=== PATIENT | male | born 1965 | race Caucasian/White ===

== ENCOUNTER 2017-03-12 21:05 | Inpatient (IN) | payer BC, OTHER ==
--- NOTE | 2017-03-12 21:39 | ED ---
Extremity Problem HPI - General Source: patient, RN notes reviewed Mode of arrival: ambulatory Limitations: no limitations <Sindy Gregorio - Last Filed: 03/12/17 21:29> <Francisco Frances - Last Filed: 03/12/17 23:43> - General Chief complaint: Extremity Problem,Nontraumatic Stated complaint: finger numbness Time Seen by Provider: 03/12/17 21:13 - History of Present Illness Initial comments: This is a 51-year-old man who presents to the emergency department with chief complaint of left pinky numbness. Patient states that at about 4:30 this evening he noticed that his left pinky was pale and felt numb. Patient reports that the extent of the numbness is distal to the DIP of left fifth digit. Patient is worried about a blood clot due to his history of TIA. He reports that he takes Plavix 75 mg daily. Patient describes the numbness as if there was a "band-aid wrapped around my finger." He reports that he believes he does have Reynaud's phenomenon as his fingers become pale and uncomfortable, worsening in the cold weather. Patient also reports that 3 days ago while at work he hit his palm and it is now tender. He wonders if he injured a nerve. Denies fever, chills, chest pain, shortness of breath, abdominal pain, nausea or vomiting, constipation or diarrhea, dysuria or hematuria, headache or vision changes. (Sindy Gregorio) - Related Data Home Medications Medication Instructions Recorded Confirmed L.acidoph,Paracasei, B.lactis 1 cap PO DAILY 03/14/16 03/12/17 [Probiotic] Vitamin B Complex 1 cap PO DAILY 03/12/17 03/12/17 Previous Rx's Medication Instructions Recorded Clopidogrel Bisulfate [Plavix] 75 mg PO DAILY #30 tab 03/14/16 Allergies Allergy/AdvReac Type Severity Reaction Status Date / Time No Known Allergies Allergy Verified 03/12/17 22:13 Review of Systems ROS Other: All systems not noted in ROS Statement are negative. <Sindy Gregorio - Last Filed: 03/12/17 21:29> ROS Other: All systems not noted in ROS Statement are negative. <Francisco Frances - Last Filed: 03/12/17 23:43> ROS Statement: Those systems with pertinent positive or pertinent negative responses have been documented in the HPI. Past Medical History Past Medical History: CVA/TIA Additional Past Medical History / Comment(s): diverticular disease History of Any Multi-Drug Resistant Organisms: None Reported Past Surgical History: Appendectomy Additional Past Surgical History / Comment(s): diverticulitis Past Anesthesia/Blood Transfusion Reactions: No Reported Reaction Past Psychological History: No Psychological Hx Reported Smoking Status: Former smoker Past Alcohol Use History: None Reported Past Drug Use History: None Reported - Past Family History Mother Family Medical History: Coronary Artery Disease (CAD), CVA/TIA, Diabetes Mellitus, Hypertension, Myocardial Infarction (CA) Additional Family Medical History / Comment(s): Mother of CHF at the age of 89yrs. Father Family Medical History: Congestive Heart Failure (CHF), Coronary Artery Disease (CAD) Additional Family Medical History / Comment(s): Father of CHF at the age of 58yrs. <Sindy Gregorio - Last Filed: 03/12/17 21:29> General Exam Limitations: no limitations <Sindy Gregorio - Last Filed: 03/12/17 21:29> General appearance: alert, in no apparent distress Head exam: Present: atraumatic, normocephalic, normal inspection Eye exam: Present: normal appearance, PERRL, EOMI. Absent: scleral icterus, conjunctival injection, periorbital swelling ENT exam: Present: normal exam, mucous membranes moist Neck exam: Present: normal inspection. Absent: tenderness, meningismus, lymphadenopathy Respiratory exam: Present: normal lung sounds bilaterally. Absent: respiratory distress, wheezes, rales, rhonchi, stridor Cardiovascular Exam: Present: regular rate, normal rhythm, normal heart sounds. Absent: systolic murmur, diastolic murmur, rubs, gallop, clicks GI/Abdominal exam: Present: soft, normal bowel sounds. Absent: distended, tenderness, guarding, rebound, rigid Extremities exam: Present: normal inspection, full ROM, normal capillary refill. Absent: tenderness, pedal edema, joint swelling, calf tenderness Back exam: Present: normal inspection Neurological exam: Present: alert, oriented X3, CN II-XII intact Psychiatric exam: Present: normal affect, normal mood Skin exam: Present: warm, dry, intact, normal color. Absent: rash <Roskopp,Francisco B - Last Filed: 03/12/17 23:43> - General Exam Comments Initial Comments: General: Awake and alert, well-developed; in no apparent distress. is at bedside. HEENT: Head atraumatic, normocephalic. Pupils are equal, round and reactive to light. Extraocular movements intact. Dentition is poor. Neck: Supple. Normal ROM. Cardiovascular: Regular rate and rhythm. No murmurs, rubs or gallops. Chest symmetrical. Respiratory: Normal respiratory effort with no use of accessory muscles. Audible expiratory wheezing. Expiratory wheezing throughout all lung garcia. Skin/Musculoskeletal: 5th digit of left hand is pale, cool and has poor capillary refill. Poor skin turgor at pad of left fifth digit. Normal sensation. Range of motion and strength are intact. Radial pulses are 2+ equal and palpable bilaterally. Positive Jonny test-blood flow in ulnar artery distribution is obstructed. Neurological: Alert and oriented x3. CN II-XII grossly intact. Speech is fluent and answers are appropriate. No focal neuro deficits. Psychiatric: Normal mood and affect. No overt signs of depression or anxiety noted. (Sindy Gregorio) Course <Sindy Gregorio - Last Filed: 03/12/17 21:29> <Francisco Frances - Last Filed: 03/12/17 23:43> Vital Signs 03/12/17 21:08 Temperature 97 F L Pulse Rate 99 Respiratory 16 Rate Blood Pressure 136/92 O2 Sat by Pulse 97 Oximetry - Reevaluation(s) Reevaluation #1: 03/12/17 23:43 Patient does have good pulses of all pulse 03/12/17 23:43 Positive Jonny test left hand, ulnar distribution 03/12/17 23:43 (Francisco Frances) Medical Decision Making <Sindy Gregorio - Last Filed: 03/12/17 21:29> - Lab Data Result diagrams: 03/12/17 23:28 - Radiology Data Radiology results: report reviewed (CTA chest and left upper extremity is pending), image reviewed <Francisco Frances - Last Filed: 03/12/17 23:43> - Medical Decision Making Patient is a 51-year-old male who presents with chief complaint of left fifth digit paleness and numbness. Patient denies chest pain or shortness of breath. This case was discussed with attending physician, Dr. Frances, who also evaluated the patient. Jonny test was performed demonstrating decreased blood flow to the hand via the ulnar artery. (Sindy Gregorio) 51 male to ER for evaluation, patient was also seen in ER by Dr. Hudson for vascular surgery, patient be admitted with anticoagulation, further evaluation and treatment by vascular surgery (Francisco Frances) - Lab Data Lab Results 03/12/17 Range/Units 23:28 WBC 6.5 (3.8-10.6) k/uL RBC 4.42 (4.30-5.90) m/uL Hgb 13.9 (13.0-17.5) gm/dL Hct 41.8 (39.0-53.0) % MCV 94.6 (80.0-100.0) fL MCH 31.4 (25.0-35.0) pg MCHC 33.2 (31.0-37.0) g/dL RDW 13.7 (11.5-15.5) % Plt Count 266 (150-450) k/uL Neutrophils % 46 % Lymphocytes % 40 % Monocytes % 8 % Eosinophils % 3 % Basophils % 1 % Neutrophils # 3.0 (1.3-7.7) k/uL Lymphocytes # 2.6 (1.0-4.8) k/uL Monocytes # 0.5 (0-1.0) k/uL Eosinophils # 0.2 (0-0.7) k/uL Basophils # 0.1 (0-0.2) k/uL Disposition <Sindy Gregorio - Last Filed: 03/12/17 21:29> <Francisco Frances - Last Filed: 03/12/17 23:43> Clinical Impression: Obstruction of left ulnar artery, Ischemia of left upper extremity Disposition: ADMITTED IP TO THIS HOSP Condition: Good Instructions: Peripheral Artery Disease (ED) Additional Instructions: Please take medications as prescribed. Please follow up with primary care provider within 1-2 days. Return to emergency department if symptoms should worsen or any concerns arise. Referrals: Bo Fonseca MD [Primary Care Provider] - 1-2 days
[2017-03-12] MEDS ORDERED: SODIUM CHLORIDE 0.9% 1,000 ML IV STA (22:39)
[2017-03-12] MEDS ORDERED: HEPARIN SODIUM,PORCINE 5,000 UNIT/ML 1 ML VIAL IV ONE (22:39)
[2017-03-12 23:35] LABS: Basophils # (A) 0.1 k/uL (0-0.2); Basophils % (A) 1 %; CH 32.3; CHCM 34.3; Eosinophils # (A) 0.2 k/uL (0-0.7); Eosinophils % (A) 3 %; HCT 41.8 % (39.0-53.0); HDW 2.23; HGB 13.9 gm/dL (13.0-17.5); Luc # (Auto) 0.18; Luc % (Auto) 3; Lymphocytes # (A) 2.6 k/uL (1.0-4.8); Lymphocytes % (A) 40 %; MCH 31.4 pg (25.0-35.0); MCHC 33.2 g/dL (31.0-37.0); MCV 94.6 fL (80.0-100.0); Monocytes # (A) 0.5 k/uL (0-1.0); Monocytes % (A) 8 %; Neutrophils % (A) 46 %; RBC 4.42 m/uL (4.30-5.90); RDW 13.7 % (11.5-15.5); WBC 6.5 k/uL (3.8-10.6); WBC (Perox) 6.46
[2017-03-12] MEDS ORDERED: SODIUM CHLORIDE 0.9% 1,000 ML IV ONE (23:40)
[2017-03-12] MEDS ORDERED: RX INFO: IV CONTRAST WAS GIVEN 1 EACH MISC MISCELLANE PRN (23:40)
[2017-03-12 23:45] LABS: ALT 34 U/L (21-72); AST 15 U/L (17-59); Alkaline Phosphatase 77 U/L (38-126); Anion Gap 9 mmol/L; Blood Urea Nitrogen 20 mg/dL (9-20); Carbon Dioxide 24 mmol/L (22-30); Chloride 107 mmol/L (98-107); Glucose 121 mg/dL (74-99); INR 0.9 (<1.2); Magnesium 2.1 mg/dL (1.6-2.3); Non-African American GFR(MDRD) >60 (>60 ml/min/1.73 sqM); Partial Thromboplastin Time 22.6 sec (22.0-30.0); Phosphorus 3.4 mg/dL (2.5-4.5); Prothrombin Time 9.7 sec (9.0-12.0); Sodium 140 mmol/L (137-145); Total Bilirubin 0.2 mg/dL (0.2-1.3); Total Protein 6.4 g/dL (6.3-8.2)
[2017-03-12] MEDS: HEPARIN SODIUM,PORCINE/D5W PMX 25,000 UNIT in DEXTROSE/WATER 1 500ML.BAG IV SCH (23:45)
[2017-03-13 00:07] LABS: Creatine Kinase 51 U/L (55-170)
[2017-03-13 00:20] LABS: Creatine Kinase MB 1.1 ng/mL (0.0-2.4); Troponin I <0.012 ng/mL (0.000-0.034)
[2017-03-13] MEDS ORDERED: HYDROmorphone 1 MG/ML 1 ML SYRINGE IVP PRN ×2 (04:57→04:58)
[2017-03-13 05:29] LABS: Basophils % (A) 1 %; CH 32.4; CHCM 33.7; Eosinophils # (A) 0.2 k/uL (0-0.7); Eosinophils % (A) 4 %; HCT 40.9 % (39.0-53.0); HGB 13.2 gm/dL (13.0-17.5); Luc # (Auto) 0.11; Luc % (Auto) 2; Lymphocytes # (A) 2.4 k/uL (1.0-4.8); Lymphocytes % (A) 48 %; MCH 31.2 pg (25.0-35.0); MCHC 32.4 g/dL (31.0-37.0); MCV 96.5 fL (80.0-100.0); Mean Platelet Volume 7.2; Monocytes # (A) 0.4 k/uL (0-1.0); Monocytes % (A) 8 %; Neutrophils # (A) 1.8 k/uL (1.3-7.7); Neutrophils % (A) 37 %; RBC 4.23 m/uL (4.30-5.90); RDW 13.8 % (11.5-15.5); WBC 4.9 k/uL (3.8-10.6); WBC (Perox) 4.79
[2017-03-13] MEDS: HEPARIN SODIUM,PORCINE 5,000 UNIT/ML 1 ML VIAL IV PRN ×2 (06:02→13:32)
--- NOTE | 2017-03-13 08:05 | CONS ---
CONSULTATION This is a 51-year-old gentleman who came to the emergency room at [facility] with history of numbness and cold feeling of the left hand, fifth finger and complained of numbness and cold feeling. No history of trauma. Patient had history of TIA in the past, affected left side. Patient had a complete stroke workup and according the patient, no hemodynamic stenosis noted of the carotid artery. MEDICAL HISTORY: History of hypertension, controlled with medication. No history of coronary artery disease. PHYSICAL EXAMINATION: Neck is supple. No bruit appreciated. Chest is clear to auscultation. First and second sound is normal. Abdomen is soft, nontender. Physical examination of the femorals are palpable bilateral. Brachial and radial pulses are palpable bilateral. The left hand, fifth finger has some cold feeling and mild capillary refill noted. Motor function was found to be normal. PLAN: Patient has been anticoagulated with heparin. We will do the CT of the chest and the arm. Will follow with you. SIA / IJN: [id number] /
--- NOTE | 2017-03-13 12:24 | CT ---
EXAMINATION TYPE: CT angio chest, CT angio upper extremity LT DATE OF EXAM: 03/13/2017 COMPARISON: NONE HISTORY: 51-year-old male with pain Lt pinky is numb TECHNIQUE: Contiguous axial scanning of the chest and left upper extremity performed with IV Contrast , patient injected with 100 mL of Omnipaque 350. Coronal/sagittal reconstructions performed. 3-D chacorta nstructions generated on a dedicated independent workstation. CT DLP: 1222.7 mGycm Automated exposure control for dose reduction was used. FINDINGS: CHEST: The heart is normal size without pericardial effusion. Aorta is normal caliber with conventional arch vessel branching anatomy. No significant atherosclerot ic change. No thoracic lymphadenopathy. Some patchy and strandy atelectasis or scarring at the posterior left lung base. Some additional stra ndy scarring peripheral right upper lobe. No consolidation or pleural effusion. ABDOMEN: Small hiatal hernia suggested but there is some circumferential wall thickening just above the GE naldo ction in the distal esophagus, axial image 46. Redundant mucosa is possible. Hypervascular focus anterior left hepatic lobe, axial image 50 likely small area of vascular shunting . Similar small area in the right hepatic lobe, axial image 60. Gallbladder, adrenal glands, kidneys, spleen, and pancreas show no gross abnormality. No dilated small bowel, free fluid, or free air. Scattered nonenlarged mesenteric lymph nodes are not ed. Some surgical material at the cecum suggest prior appendectomy. Short segment wall thickening of the proximal third sigmoid colon for a length of 4.6 cm, axial image 106 along with sigmoid diverticulosis. No pericolonic inflammatory change seen. There is mild atherosclerotic change within the infrarenal abdominal aorta and common iliac arteries. Pelvis: Patulous bilateral inguinal canals. Bladder is urine distended. No abnormal fluid collection in the p joseph or pelvic lymphadenopathy seen. Bones: Mild degenerative changes of the hips. Additional degenerative changes lower lumbar spine. No osseous destructive process. Left upper extremity: The left subclavian, axillary, brachial, its bifurcation, and radial artery are visualized and patent . The radial artery is seen to the level of the base of the thumb after which it becomes obscured. Th e ulnar artery becomes obscured 8 cm beyond the brachial artery bifurcation as the patient shifted hi s arm outside the field of view. IMPRESSION: VASCULATURE: 1. The aorta and arch vessels are patent. 2. The left axillary and brachial arteries are patent. 3. The radial artery is seen to the base of the thumb. 4. The first 8 cm of the ulnar artery are patent. However, subsequently, the ulnar artery leaves the field of view and is not assessed from the mid forearm level down (the patient moved his arm). OTHER FINDINGS: 2. Sigmoid diverticulosis though with short segment circumferential wall thickening at the proximal t hird sigmoid. Findings could reflect chronic diverticulitis or underlying neoplasm. Direct visualizat ion recommended. 3. Small hiatal hernia but with some additional thickening at the distal esophagus which may relate t o redundant wall. Again, direct visualization can exclude neoplasm.
[2017-03-13 13:00] LABS: Rheumatoid Factor, Qnt <9 IU/mL (<12)
[2017-03-13] MEDS ORDERED: RX INFO: IV CONTRAST WAS GIVEN 1 EACH MISC MISCELLANE PRN (14:45)
[2017-03-13] MEDS: CLOPIDOGREL 75 MG TAB PO SCH (15:50)
--- NOTE | 2017-03-13 15:59 | HP ---
HISTORY AND PHYSICAL CHIEF COMPLAINTS: Pain and discoloration of the left little finger. HISTORY OF PRESENT ILLNESS: This 51-year-old gentleman with a past medical history of multiple medical problems, including CVA, TIA, diverticulitis, appendectomy, being followed by Dr. Fonseca in the outpatient setting, was noted to have bluish discoloration of the left arm yesterday. The patient noted the left pinky was pale and the patient also had some Band-Aid wrapped around the finger. Because of lack of improvement, the patient was referred to [facility] and admitted for further evaluation and treatment. Patient also has Raynaud phenomenon in the fingers. There is no history of any fever, rigor or chills. No history of headache, loss of consciousness, seizures. PAST MEDICAL HISTORY: 1. History of CVA, TIA. 2. Diverticular disease. HOME MEDICATIONS: 1. Vitamin B complex 1 p.o. daily. 2. Probiotic 1 daily. 3. Plavix 75 mg p.o. daily. ALLERGIES: NONE. FAMILY HISTORY: History of CAD, CVA, TIA, diabetes mellitus, type 2, hypertension, myocardial infarction in the family. SOCIAL HISTORY: History of smoking. No history alcohol intake. REVIEW OF SYSTEMS: ENT: No diminished hearing. No diminished vision. CARDIOVASCULAR SYSTEM: No angina, palpitations. RESPIRATORY SYSTEM: No cough, hemoptysis. GI: As mentioned earlier. : No dysuria or retention. NERVOUS SYSTEM: No numbness. Otherwise as mentioned earlier. ALLERGY/IMMUNOLOGY: No asthma, hayfever. MUSCULOSKELETAL: As mentioned earlier. HEMATOLOGY/ONCOLOGY: As mentioned earlier. ENDOCRINE: No history of diabetes, hypothyroidism. CONSTITUTIONAL: As mentioned earlier. DERMATOLOGY: As mentioned earlier. RHEUMATOLOGY: Negative. PSYCHIATRY: As mentioned earlier. PHYSICAL EXAMINATION: Patient alert and oriented x3. Pulse is 83, blood pressure 124/88, respiration 20, temperature 96.9, pulse ox 94% room air. HEENT: Conjunctivae normal. Oral mucosa moist. NECK: No jugular venous distention. No carotid bruit. No lymph node enlargement. CARDIOVASCULAR SYSTEM: S1, S2 muffled. RESPIRATORY SYSTEM: Breath sounds diminished at the bases. No rhonchi. No crackles. ABDOMEN: Soft, nontender. No mass palpable. LEGS: No edema. No swelling. NERVOUS SYSTEM: Higher functions as mentioned earlier. Moves all 4 limbs. No focal motor or sensory deficit. LYMPHATICS: No lymph node palpable in neck, axillae or groin. SKIN: No ulcer, rash, bleeding. Capillary return in the left little finger is slow at this time. Minimal discoloration. Non-tender. Movements are not limited. Skin as mentioned earlier. LABS: WBC 6.2, hemoglobin 13.9. Glucose 121. AST is 15 and total creatine kinase is 51. Rheumatoid factor is less than 9. C-reactive protein 6. ASSESSMENT: 1. 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 Rule out embolic disease. 2. Rule out thromboangiitis obliterans. 3. Possible Raynaud syndrome. 4. Cerebrovascular accident, transient ischemic attack. 5. Diverticular disease. 6. History of nicotine dependence. RECOMMENDATION AND DISCUSSION: In this 51-year-old gentleman who presented with multiple complex medical issues, will monitor the patient closely, continue the current medications, continue with symptomatic management. I would recommend continuing with IV heparin, which has been ordered, and closely follow with Dr. Hudson. I would also recommend a 2D echo with Doppler. The upper extremity CTA was done per Dr. Hudson's recommendations, and the upper extremity CTA shows patent arteries. Sigmoid diverticulosis noted. The CTA shows some patchy atelectasis. I would recommend continuing the rest of the medications. Also will check lipid panel. Guarded prognosis. Further recommendations to follow. See orders for further details. MMODL / IJN: [id number] /
[2017-03-13] MEDS: HEPARIN SODIUM,PORCINE/D5W PMX 25,000 UNIT in DEXTROSE/WATER 1 500ML.BAG IV SCH (19:05)
--- NOTE | 2017-03-13 19:09 | ECHOF ---
Referral Reason:stroke?? MEASUREMENTS -------- HEIGHT: 152.4 cm WEIGHT: 103.9 kg BP: 151/83 RVIDd: 2.8 cm (< 3.3) IVSd: 1.1 cm (0.6 - 1.1) LVIDd: 5.0 cm (3.9 - 5.3) LVPWd: 1.5 cm (0.6 - 1.1) IVSs: 1.3 cm LVIDs: 4.0 cm LVPWs: 1.4 cm LAESV Index (A-L): 27.05 ml/m Ao Diam: 3.4 cm (2.0 - 3.7) AV Cusp: 2.3 cm (1.5 - 2.6) LA Diam: 3.5 cm (2.7 - 3.8) MV EXCURSION: 19.783 mm (> 18.000) MV EF SLOPE: 110 mm/s (70 - 150) EPSS: 0.3 cm MV E Jerson: 0.69 m/s MV DecT: 158 ms MV A Jerson: 0.63 m/s MV E/A Ratio: 1.10 RAP: 5.00 mmHg RVSP: 15.39 mmHg FINDINGS -------- Sinus rhythm. This was a technically good study. The left ventricular size is normal. Left ventricular wall thickness is normal. Overall left ventricular systolic function is normal with, an EF between 55 - 60 %. The right ventricle is normal in size. The left atrial size is normal. The right atrial size is normal. There is mild aortic valve sclerosis. There is no evidence of aortic regurgitation. Mild mitral annular calcification present. Mild mitral regurgitation is present. Mild tricuspid regurgitation present. There is no evidence of pulmonary hypertension. The right ventricular systolic pressure, as measured by Doppler, is 15.39mmHg. There is no pulmonic regurgitation present. The aortic root size is normal. There is no pericardial effusion. CONCLUSIONS -------- 1. The left ventricular size is normal. 2. There is no pulmonic regurgitation present. 3. There is no pericardial effusion. 4. Left ventricular wall thickness is normal. 5. Overall left ventricular systolic function is normal with, an EF between 55 - 60 %. 6. There is mild aortic valve sclerosis. 7. Mild mitral annular calcification present. 8. Mild mitral regurgitation is present. 9. Mild tricuspid regurgitation present. 10. There is no evidence of pulmonary hypertension. 11. The right ventricular systolic pressure, as measured by Doppler, is 15.39mmHg. ONLINE MARKETING COORDINATOR: Daily Harden RDCS
[2017-03-13 19:10] LABS: Treponemal Ab Non-Reactive (Non-Reactive)
[2017-03-13 19:10] LABS: Appearance,Urine Clear (Clear); Bilirubin,Urine Negative (Negative); Glucose,Urine (UA) Negative (Negative); Ketones,Urine Negative (Negative); Leukocyte Esterase,Urine Negative (Negative); Nitrite,Urine Negative (Negative); PH, Urine 6.5 (5.0-8.0); Protein,Urine Negative (Negative); Specific Gravity,Urine 1.021 (1.001-1.035); UA Billing (MACRO vs. MICRO) CHEM; Urobilinogen,Urine <2.0 mg/dL (<2.0)
[2017-03-13 19:59] LABS: ANA w/Reflex to Titer NEGATIVE (NEGATIVE)
[2017-03-14 08:14] LABS: Basophils % (A) 1 %; CH 31.1; CHCM 32.1; Eosinophils # (A) 0.2 k/uL (0-0.7); Eosinophils % (A) 3 %; HCT 43.5 % (39.0-53.0); HDW 2.25; HGB 13.9 gm/dL (13.0-17.5); Luc # (Auto) 0.15; Luc % (Auto) 3; Lymphocytes # (A) 2.1 k/uL (1.0-4.8); Lymphocytes % (A) 45 %; MCV 97.1 fL (80.0-100.0); Mean Platelet Volume 6.6; Monocytes # (A) 0.4 k/uL (0-1.0); Monocytes % (A) 8 %; Neutrophils # (A) 1.9 k/uL (1.3-7.7); Neutrophils % (A) 41 %; RBC 4.48 m/uL (4.30-5.90); RDW 12.6 % (11.5-15.5); WBC 4.8 k/uL (3.8-10.6); WBC (Perox) 4.79
[2017-03-14 08:26] LABS: Partial Thromboplastin Time 36.8 sec (22.0-30.0); Prothrombin Time 10.3 sec (9.0-12.0)
[2017-03-14 08:33] LABS: Blood Urea Nitrogen 10 mg/dL (9-20); Cholesterol 160 mg/dL (<200); HDL Cholesterol 39 mg/dL (40-60); Non-African American GFR(MDRD) >60 (>60 ml/min/1.73 sqM)
[2017-03-14] MEDS: CLOPIDOGREL 75 MG TAB PO SCH (08:34)
[2017-03-14] MEDS: HEPARIN SODIUM,PORCINE 5,000 UNIT/ML 1 ML VIAL IV PRN (08:37)
[2017-03-14] MEDS: HEPARIN SODIUM,PORCINE/D5W PMX 25,000 UNIT in DEXTROSE/WATER 1 500ML.BAG IV SCH (08:41)
[2017-03-14] MEDS ORDERED: LACTOBACILLUS ACIDOPH & BULGAR 1 EACH PACKET PO SCH (09:00)
--- NOTE | 2017-03-14 11:30 | CT ---
EXAMINATION TYPE: CTA of the left upper extremity with intravenous contrast DATE OF EXAM: 03/14/2017 COMPARISON: NONE HISTORY: Rule out blockage TECHNIQUE: Helical acquisition through the left upper extremity was obtained following intravenous ad ministration of 100 cc of Omnipaque 350 50. The data was reformatted in axial, coronal and sagittal p rojections. Three-dimensional volume rendered imaging was also obtained at the CT scanner. CT DLP: 732 mGycm Automated exposure control for dose reduction was used. CONTRAST: Performed with IV Contrast, patient injected with 100 mL of Omnipaque 350. FINDINGS: Musculature of the left forearm appears normal. No acute osseous lesion is seen. The brachial artery is intact. Both the radial and ulnar arteries are patent to the level of distal f orearm. The ulnar artery attenuates proximal to the wrist. The radial artery is patent to the level o f the wrist before occluding. The digital arteries are reconstituted via collaterals. 2 vessels are s een to be patent in each of the 5 digits. The palmar arches are not definitely demonstrated. IMPRESSION: 1. OCCLUSION OF THE ULNAR ARTERY IN THE DISTAL FOREARM. 2. OCCLUSION OF THE RADIAL ARTERY AT THE LEVEL OF THE WRIST. 3. DIGITAL ARTERIES ARE RECONSTITUTED VIA COLLATERALS. 4. THE PALMAR ARCHES ARE NOT CLEARLY DEMONSTRATED.
[2017-03-14] MEDS ORDERED: CYANOCOBALAMIN-FA-PYRIDOXINE 1 EACH TAB PO SCH (12:00)
--- NOTE | 2017-03-14 12:57 | PN ---
PROGRESS NOTE This is a 51-year-old gentleman who came to the ER with a history of numbness and discomfort in the left hand 5th finger. There was some change in color of the 5th finger. There is no history of trauma. The patient has a history of CVA in the past, affecting left side with recovery. The patient has been on Plavix. On examination, brachial, radial pulses are palpable, otherwise unremarkable. Left 5th finger is cooler than the rest of the fingers. We ordered a CT of the arch and left arm, discussed with Radiology that he had moved his arm so they could not visualize the ulnar artery on the left side, so the patient is scheduled to have a repeat CT of the left arm, including the radial and ulnar arteries and the superficial and deep arch of the left hand. The patient also scheduled to have an echocardiogram by Cardiology and follow with you. SIA / ERINN: [id number] /
[2017-03-14 15:44] VITALS: BP 134/77; PULSE 85; RESP 19; TEMP 96.8
--- NOTE | 2017-03-14 16:38 | P.DS ---
Providers Date of admission: 03/12/17 23:42 Attending physician: Raina Gibson Consults: 03/12/17 23:40 Consult Physician Routine Consulting Provider: Hosea Hudson Consult Reason/Comments: artery Do you want consulting provider notified?: Yes 03/13/17 15:07 Consult Physician Routine Consulting Provider: Wilmar Chaves Consult Reason/Comments: possible KENDRA? h/o tia, possible arterial occlusion Do you want consulting provider notified?: Yes Primary care physician: Bo [facility] Hospital Course: His 51-year-old gentleman with a past medical history multiple medical problems was admitted with acute arterial occlusion of the left the finger. Patient was evaluated the along with the Dr. Hudson. A CTA of the upper limb but showed occlusion of both ulnar and medial arteries.. However because of the concerns of for arteriopathy and vascular occlusions Dr. Hudson who discussed the case with [facility] and the patient be transferred in a stable condition with guarded prognosis to [facility] for evaluation and treatment. Total time taken 35 minutes On exam vitals are stable. Cardio S1 and S2 normal. Respirator system clear to auscultation. Abdomen soft nontender. Capillary return slightly impaired left the little finger. Patient also had a chest CT which did not show any acute abnormality. Final diagnosis 1. 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 2. 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 History of diverticular disease 5. History of nicotine dependence. Patient Condition at Discharge: Good Plan - Discharge Summary New Discharge Prescriptions: No Action L.acidoph,Paracasei, B.lactis [Probiotic] 1 cap PO DAILY Clopidogrel Bisulfate [Plavix] 75 mg PO DAILY #30 tab Vitamin B Complex 1 cap PO DAILY Discharge Medication List Clopidogrel Bisulfate [Plavix] 75 mg PO DAILY #30 tab 03/14/16 [Rx] L.acidoph,Paracasei, B.lactis [Probiotic] 1 cap PO DAILY 03/14/16 [History] Vitamin B Complex 1 cap PO DAILY 03/12/17 [History] Follow up Appointment(s)/Referral(s): Bo Fonseca MD [Primary Care Provider] - 1-2 days Patient Instructions/Handouts: Peripheral Artery Disease (ED) Activity/Diet/Wound Care/Special Instructions: Please take medications as prescribed. Please follow up with primary care provider within 1-2 days. Return to emergency department if symptoms should worsen or any concerns arise.
[2017-03-16 14:50] LABS: Protein C (Activity) 104 % (70 - 130); Protein S (Activity) 72 % (65 - 140)
== END 2017-03-14 18:12 | disposition short-term general hospital (02) | DRG 300 ==
LOC: EC 21:05 → 4MS4W 23:42
PROVIDERS: ADMIT Hospitalist; ATTEND Hospitalist
DX: I77.89 Other specified disorders of arteries and arterioles (principal); J98.11 Atelectasis; I10 Essential (primary) hypertension; I73.00 Raynaud's syndrome without gangrene; K57.30 Diverticulosis of large intestine without perforation or abscess without bleeding; Z79.02 Long term (current) use of antithrombotics/antiplatelets; Z79.899 Other long term (current) drug therapy; Z87.891 Personal history of nicotine dependence; Z86.73 Personal history of transient ischemic attack (TIA), and cerebral infarction without residual deficits
CPT/HCPCS: 36415; 71275; 80053; 80061; 80306; 81003; 81241; 82550; 82553; 82565; 83090; 83735; 84100; 84484; 84520; 85025; 85303; 85306; 85610; 85652; 85730; 86038; 86140; 86431; 86780; 93005; 93306; 96365; 96376; 99285

== ENCOUNTER 2019-07-11 23:35 | Emergency (ER) | payer BC ==
[2019-07-11 23:40] VITALS: BP 163/98; PULSE 94; RESP 18; TEMP 97.6
[2019-07-12] MEDS ORDERED: PANTOPRAZOLE 40 MG/10 ML VIAL IVP STA (00:03)
[2019-07-12] MEDS ORDERED: ONDANSETRON 4 MG/2 ML VIAL IVP STA (00:03)
[2019-07-12] MEDS ORDERED: SODIUM CHLORIDE 0.9% 1,000 ML IV STA (00:03)
[2019-07-12] MEDS ORDERED: MORPHINE SULFATE 4 MG/ML SYRINGE IV STA (00:03)
--- NOTE | 2019-07-12 00:03 | ED ---
Abdominal Pain HPI - General Chief Complaint: Abdominal Pain Stated Complaint: Abdominal Pain Time Seen by Provider: 07/11/19 23:45 Source: patient, family Mode of arrival: ambulatory Limitations: no limitations - History of Present Illness Initial Comments: This is a 53-year-old male DF for evaluation patient is safe for evaluation of severe abdominal pain epigastric and diffuse abdominal pain nausea no vomiting. No diarrhea no blood in the stool. All movements today that was performed nebulous than normal. No travel history no sick contacts. History of diverticulitis with no abdominal surgery secondary did have his appendix removed about 30 years ago. Patient states symptoms started about 6 hours prior to arrival. He was able to eat and drink without difficulty MD Complaint: abdominal pain -: hour(s) Location: suprapubic Radiation: suprapubic Severity: moderate Severity scale (1-10): 7 Quality: fullness, sharp Consistency: constant Improves With: nothing Worsens With: nothing Context: recent surgery/procedure Associated Symptoms: nausea - Related Data Home Medications Medication Instructions Recorded Confirmed L.acidoph,Paracasei, B.lactis 1 cap PO DAILY 03/14/16 03/12/17 [Probiotic] Vitamin B Complex 1 cap PO DAILY 03/12/17 03/12/17 Previous Rx's Medication Instructions Recorded Clopidogrel Bisulfate [Plavix] 75 mg PO DAILY #30 tab 03/14/16 Allergies Allergy/AdvReac Type Severity Reaction Status Date / Time No Known Allergies Allergy Verified 07/11/19 23:38 Review of Systems ROS Statement: Those systems with pertinent positive or pertinent negative responses have been documented in the HPI. ROS Other: All systems not noted in ROS Statement are negative. Past Medical History Past Medical History: CVA/TIA Additional Past Medical History / Comment(s): diverticular disease History of Any Multi-Drug Resistant Organisms: None Reported Past Surgical History: Appendectomy Additional Past Surgical History / Comment(s): diverticulitis Past Anesthesia/Blood Transfusion Reactions: No Reported Reaction Past Psychological History: No Psychological Hx Reported Smoking Status: Former smoker Past Alcohol Use History: None Reported Past Drug Use History: None Reported - Past Family History Mother Family Medical History: Coronary Artery Disease (CAD), CVA/TIA, Diabetes Mellitus, Hypertension, Myocardial Infarction (PR) Additional Family Medical History / Comment(s): Mother of CHF at the age of 89yrs. Father Family Medical History: Congestive Heart Failure (CHF), Coronary Artery Disease (CAD) Additional Family Medical History / Comment(s): Father of CHF at the age of 58yrs. General Exam Limitations: no limitations Course Vital Signs 07/11/19 23:38 Temperature 97.6 F Pulse Rate 94 Respiratory 18 Rate Blood Pressure 163/98 O2 Sat by Pulse 97 Oximetry - Reevaluation(s) Reevaluation #1: 07/12/19 01:14 Medical records reviewed Reevaluation #2: 07/12/19 01:14 Symptoms are significantly improved Medical Decision Making - Medical Decision Making 83 male DF for evaluation patient with us today for evaluation of abdominal pain severe abdominal pain sugar pubic related to diverticulitis. Patient control patient can be discharged - Lab Data Result diagrams: 07/12/19 00:01 07/12/19 00:01 Lab Results 07/12/19 07/12/19 07/12/19 Range/Units 00:01 00:01 00:01 WBC 13.0 H (3.8-10.6) k/uL RBC 5.06 (4.30-5.90) m/uL Hgb 15.6 (13.0-17.5) gm/dL Hct 47.4 (39.0-53.0) % MCV 93.6 (80.0-100.0) fL MCH 30.8 (25.0-35.0) pg MCHC 32.9 (31.0-37.0) g/dL RDW 12.3 (11.5-15.5) % Plt Count 277 (150-450) k/uL Neutrophils % 78 % Lymphocytes % 13 % Monocytes % 5 % Eosinophils % 2 % Basophils % 1 % Neutrophils # 10.1 H (1.3-7.7) k/uL Lymphocytes # 1.7 (1.0-4.8) k/uL Monocytes # 0.6 (0-1.0) k/uL Eosinophils # 0.3 (0-0.7) k/uL Basophils # 0.1 (0-0.2) k/uL Sodium 136 L (137-145) mmol/L Potassium 3.7 (3.5-5.1) mmol/L Chloride 101 (98-107) mmol/L Carbon Dioxide 29 (22-30) mmol/L Anion Gap 6 mmol/L BUN 20 (9-20) mg/dL Creatinine 0.98 (0.66-1.25) mg/dL Est GFR (CKD-EPI)AfAm >90 (>60 ml/min/1.73 sqM) Est GFR (CKD-EPI)NonAf 87 (>60 ml/min/1.73 sqM) Glucose 110 H (74-99) mg/dL Plasma Lactic Acid Francisco Javier 0.7 (0.7-2.0) mmol/L Calcium 9.6 (8.4-10.2) mg/dL Total Bilirubin 0.5 (0.2-1.3) mg/dL AST 16 L (17-59) U/L ALT 12 (4-49) U/L Alkaline Phosphatase 69 (38-126) U/L Total Protein 6.9 (6.3-8.2) g/dL Albumin 4.3 (3.5-5.0) g/dL Amylase 44 (30-110) U/L Lipase 153 (23-300) U/L - Radiology Data Radiology results: report reviewed (CT abd Pelvis is positive for Diverticulitis), image reviewed Disposition Clinical Impression: Abdominal pain, Diverticulitis Disposition: HOME SELF-CARE Condition: Good Instructions (If sedation given, give patient instructions): Diverticulitis (ED), Diverticulitis Diet (ED) Is patient prescribed a controlled substance at d/c from ED?: No Referrals: Bo Fonseca MD [Primary Care Provider] - 1-2 days
[2019-07-12 00:24] LABS: Basophils # (A) 0.1 k/uL (0-0.2); Basophils % (A) 1 %; Eosinophils # (A) 0.3 k/uL (0-0.7); Eosinophils % (A) 2 %; HCT 47.4 % (39.0-53.0); HGB 15.6 gm/dL (13.0-17.5); Lymphocytes # (A) 1.7 k/uL (1.0-4.8); Lymphocytes % (A) 13 %; MCH 30.8 pg (25.0-35.0); MCHC 32.9 g/dL (31.0-37.0); MCV 93.6 fL (80.0-100.0); Mean Platelet Volume 7.4; Monocytes # (A) 0.6 k/uL (0-1.0); Monocytes % (A) 5 %; Neutrophils # (A) 10.1 k/uL (1.3-7.7); Neutrophils % (A) 78 %; Platelet Count 277 k/uL (150-450); RBC 5.06 m/uL (4.30-5.90); RDW 12.3 % (11.5-15.5)
[2019-07-12 00:38] LABS: ALT 12 U/L (4-49); AST 16 U/L (17-59); African American GFR (CKD) >90 (>60 ml/min/1.73 sqM); Albumin 4.3 g/dL (3.5-5.0); Alkaline Phosphatase 69 U/L (38-126); Amylase 44 U/L (30-110); Anion Gap 6 mmol/L; Blood Urea Nitrogen 20 mg/dL (9-20); Calcium 9.6 mg/dL (8.4-10.2); Carbon Dioxide 29 mmol/L (22-30); Chloride 101 mmol/L (98-107); Glucose 110 mg/dL (74-99); Non-African American GFR(CKD) 87 (>60 ml/min/1.73 sqM); Potassium 3.7 mmol/L (3.5-5.1); Sodium 136 mmol/L (137-145); Total Bilirubin 0.5 mg/dL (0.2-1.3); Total Protein 6.9 g/dL (6.3-8.2)
--- NOTE | 2019-07-12 00:53 | CT ---
EXAMINATION TYPE: CT abdomen pelvis w con DATE OF EXAM: 07/12/2019 COMPARISON: None HISTORY: Patient presents with abdominal pain. CT DLP: 1541.8 mGycm Automated exposure control for dose reduction was used. CONTRAST: Performed with IV Contrast, patient injected with 100mL mL of Isovue 300. Multiple axial sections were obtained from the diaphragm to the floor the pelvis with intravenous con trast. There is mild subsegmental atelectasis left lung base. There is no pleural effusion. Heart size is no rmal. There is no pericardial effusion. Stomach is intact. Liver and spleen appear normal. There is n o pancreatic mass. Gallbladder appears normal. Bile ducts are not dilated. There is no adrenal mass. Kidneys show satisfactory contrast opacification. There is no hydronephrosi s. There is no retroperitoneal adenopathy. Ureters are not dilated. Bladder distends smoothly. There is no inguinal hernia. There are numerous sigmoid diverticula with wall thickening. There is minimal fat stranding around th e mid sigmoid colon. There is no free air. There is no ascites. Appendix is not seen. There are no d ilated loops. There is no sign of a bowel obstruction. Lumbar vertebra have normal alignment. There is no compression fracture. Posterior elements are intac t. Bony pelvis appears intact. There is narrowing of L5-S1 disc space with vacuum disc. IMPRESSION: Wall thickening with numerous sigmoid diverticula. Mild diverticulitis in the mid sigmoid colon. No renal stone or obstruction. Appendix not seen.
[2019-07-12] MEDS ORDERED: KETOROLAC 30 MG/ML 1 ML VIAL IVP STA (01:13)
[2019-07-12] MEDS ORDERED: ACET/COD 300 MG/30 MG STARTER PACK 6 TAB BTL PO STA (01:13)
[2019-07-12] MEDS ORDERED: ONDANSETRON 4 MG ODT STARTER PACK 2 TAB BTL PO STA (01:13)
[2019-07-12] MEDS ORDERED: AMOXIC-POT CLAV 875MG STARTER PACK 2 TAB BTL PO STA (01:15)
[2019-07-12] MEDS ORDERED: AMOXIC-POT CLAV 875-125MG 1 EACH TAB PO STA (01:15)
== END 2019-07-12 01:31 | disposition home or self-care (01) ==
LOC: EC 23:35
DX: K57.32 Diverticulitis of large intestine without perforation or abscess without bleeding (principal); Z86.73 Personal history of transient ischemic attack (TIA), and cerebral infarction without residual deficits; Z87.891 Personal history of nicotine dependence; Z90.89 Acquired absence of other organs
CPT/HCPCS: 36415; 80053; 82150; 83605; 83690; 85025; 74177; 99284; 96374; 96375 ×3; 96361; J2270; J2405; J1885; S0119; C9113; Q9967

== ENCOUNTER → 2021-07-01 | Outpatient (CLI) | payer BC ==
--- NOTE | 2021-07-01 21:48 | CTL ---
EXAMINATION TYPE: CT Low Dose Lung DATE OF EXAM ORDERED: 07/01/2021 HISTORY: [facility] tobacco use. Lung cancer screening CT DLP: 104.[address] CTDI: 2.6 mGy Automated exposure control for dose reduction was used. SCREENING VISIT: Baseline COMPARISON: CTA chest March 13, 2017 TECHNIQUE: Low dose computed tomography scan was performed through the chest at 1 mm thick sections a nd reconstructed images in multiple planes at 1 mm and [address] DIAGNOSTIC QUALITY: Satisfactory FINDINGS: LUNG NODULES: Present, detailed below: Stable 7 x 3 mm anterior right middle lobe nodule axial image 190. No new greater than 5 mm noncalcified pulmonary nodules LUNGS: COPD: Severity: Mild Fibrosis: Severity: Mild scattered Lymph nodes: No new greater than 1 cm Other findings: None RIGHT PLEURAL SPACE: Effusion: None Calcification: None Thickening: None Pneumothorax: None LEFT PLEURAL SPACE: Effusion: None Calcification: None Thickening: None Pneumothorax: None HEART: Heart Size: Normal Coronary Calcification: None Pericardial Effusion: None OTHER FINDINGS: Upper abdomen: None Bony thorax: Mild multilevel spurring Supraclavicular region: None Other: Gas-filled diffusely dilated esophagus up to level of diaphragmatic hiatus. No obvious obstruc ting mass. IMPRESSION: No suspicious new or enlarging nodules. CT LUNG RAD AND CT CHEST RECOMMENDATION: Lung-Rad 2 Benign Appearance or Behavior: Continue annual sc reening with LDCT in 12 months. S Modifier (other clinically significant findings): S Dilated gas-filled esophagus without obstructing mass, correlate clinically for underlying esophageal dysmotility or achalasia.
== END | disposition home or self-care (01) ==
LOC: RADCTMAIN 15:20
PROVIDERS: ATTEND Family Medicine
DX: Z12.2 Encounter for screening for malignant neoplasm of respiratory organs (principal); Z87.891 Personal history of nicotine dependence
CPT/HCPCS: 71271

== ENCOUNTER → 2024-10-17 | Outpatient (CLI) | payer BC ==
--- NOTE | 2024-10-18 08:43 | CTL ---
EXAMINATION TYPE: CT Low Dose Lung DATE OF EXAM: 10/17/2024 4:18 PM COMPARISON: 07/22/2022 CLINICAL INDICATION: Male, 59 years old with history of Z87.891 PERSONAL HISTORY OF NICOTINE DEPENDEN CE, FORMER SMOKER- QUIT 8 YEARS AGO, HTN, History of tobacco use. 40 pack-year history TECHNIQUE: Low dose computed tomography scan was performed through the chest at 1 mm thick sections a nd reconstructed images in multiple planes at 1 mm and [address] DLP: 102 mGycm, CT CTDI: 2.41 mGy, Automated exposure control for dose reduction was used. CT DIAGNOSTIC QUALITY: Satisfactory FINDINGS: Heart normal size without pericardial effusion. Minimal LAD coronary artery calcifications are presen t. Aorta normal caliber with conventional arch vessel branching anatomy. No thoracic lymphadenopathy by CT size criteria. Breathing motion causing some limitation in assessment. Mild diffuse bronchial wall thickening. Stran dy scarring. Mild emphysematous change. Lingula and medial basilar right middle lobe. Similar linear thickening/scarring right upper lobe. Unchanged 8 mm fissural pulmonary nodule anteriorly on the right, axial image 175. Suggestion of a tiny hiatal hernia. Visualized upper abdomen otherwise shows no gross abnormality. Bones: No osseous destructive process. IMPRESSION: 1. LungRADS 2, benign. Stable 8 mm fissural pulmonary nodule on the right and some scattered strandy scarring. 2. COPD with mild emphysema. CT LUNG RAD AND CT CHEST RECOMMENDATION: Lung-Rad 2 Benign Appearance or Behavior: Continue annual sc reening with LDCT in 12 months. S Modifier (other clinically significant findings): None [facility], , 10/18/2024 8:41 AM
== END | disposition home or self-care (01) ==
LOC: RADCTMAIN 15:46
PROVIDERS: ATTEND Family Medicine
DX: Z12.2 Encounter for screening for malignant neoplasm of respiratory organs (principal); F17.211 Nicotine dependence, cigarettes, in remission; R91.1 Solitary pulmonary nodule; J44.9 Chronic obstructive pulmonary disease, unspecified; J43.9 Emphysema, unspecified
CPT/HCPCS: 71271